=== PATIENT | male | born 1970 | race Caucasian/White ===

== ENCOUNTER 2018-12-16 13:01 | Emergency (ER) | payer MEDICAID, BC ==
[2018-12-16] MEDS: DIPHTH/TET/ACEL PERTUSS (ADULT) 0.5 ML VIAL IM* (13:38)
[2018-12-16] MEDS: LIDOCAINE 1% (MPF) 5 ML VIAL INJ (13:38)
== END 2018-12-16 15:18 | disposition home or self-care (01) ==
LOC: FTE 13:01
DX: S01.411A Laceration without foreign body of right cheek and temporomandibular area, initial encounter (principal); W01.0XXA Fall on same level from slipping, tripping and stumbling without subsequent striking against object, initial encounter; Y92.9 Unspecified place or not applicable; Z23 Encounter for immunization
CPT/HCPCS: 12011; 70140; 90471; 90715; 99283-25